=== PATIENT | female | born 1950 | race Caucasian/White ===

== ENCOUNTER → 2016-07-05 | Outpatient (CLI) | payer OTHER | LOC: FIMAGING 14:38 | DX: Z12.31 Encounter for screening mammogram for malignant neoplasm of breast (principal) | CPT/HCPCS: G0202 ==

== ENCOUNTER → 2017-09-20 | Outpatient (CLI) | payer OTHER | LOC: FIMAGING 08:00 | PROVIDERS: ATTEND Internal Medicine | DX: Z12.31 Encounter for screening mammogram for malignant neoplasm of breast (principal) ==

== ENCOUNTER 2017-10-31 07:15 | Observation (INO) | payer OTHER ==
--- NOTE | 2017-10-31 07:12 | PDHPUP ---
History & Physical Update H&P update statement: This history and physical update is based on an assessment of the patient which was completed after admission or registration (within 24 hours), but prior to the surgery/procedure. H&P update: H&P reviewed & patient examined, no change in patient's condition since H&P completed
[~2017-10-31 07:15] MED LIST: ROPIVACAINE 0.2% 80 MG, EPINEPHrine 0.2 MG, KETOROLAC TROMETHAMINE 30 MG in SYRINGE 0 ML IU ONE; TRANEXAMIC ACID 3,000 MG in NS (SYRINGE) 50 ML IRR ONE
[2017-10-31] MEDS ORDERED: TRANEXAMIC ACID 3,000 MG/50 ML BAG IRR ONE (07:53)
[2017-10-31] MEDS ORDERED: FAMOTIDINE 20 MG TAB PO ONE (09:38)
[2017-10-31] MEDS ORDERED: ceFAZolin 2 GM/DEXTROSE 100 ML IV ONE (09:38)
[2017-10-31] MEDS ORDERED: LIDOCAINE 1% 2 ML INJ ID PRN (09:38)
[2017-10-31] MEDS ORDERED: LR 1,000 ML IV ONE (09:38)
[2017-10-31] MEDS ORDERED: ACETAMINOPHEN 325 MG TAB PO ONE (09:38)
[2017-10-31] MEDS ORDERED: DEXAMETHASONE 4 MG/ML VIAL IVP ONE (09:38)
[2017-10-31] MEDS ORDERED: PROPOFOL/EMULSION 500 MG/50 ML BOTTLE IV ONE (09:47)
[2017-10-31] MEDS ORDERED: ROPIVACAINE HCL 150 MG/30 ML INJ ONE (09:47)
[2017-10-31] MEDS ORDERED: PHENYLEPHRINE HCL 100 MCG/ML SYR ONE (09:56)
[2017-10-31] MEDS ORDERED: MIDAZOLAM 2 MG/2 ML VIAL ONE (10:55)
[2017-10-31] MEDS ORDERED: MIDAZOLAM 2 MG/2 ML VIAL IVP ONE (10:57)
--- NOTE | 2017-10-31 10:58 | PDANEPAE ---
ANE History of Present Illness Patient presents for L TKA ANE Past Medical History - Cardiovascular History Hx Hypertension: No Hx Arrhythmias: No Hx Chest Pain: No Hx Coronary Artery / Peripheral Vascular Disease: No Hx CHF / Valvular Disease: No Hx Palpitations: No - Pulmonary History Hx COPD: No Hx Asthma/Reactive Airway Disease: No Hx Recent Upper Respiratory Infection: No Hx Oxygen in Use at Home: No Hx Sleep Apnea: No Sleep Apnea Screening Result - Last Documented: Negative - Neurologic History Hx Cerebrovascular Accident: No Hx Seizures: No Hx Dementia: No - Endocrine History Hx Diabetes: No - Renal History Hx Renal Disorders: No - Liver History Hx Hepatic Disorders: No - Neurological & Psychiatric Hx Hx Neurological and Psychiatric Disorders: No - Cancer History Hx Cancer: No - Congenital Disorder History Hx Congenital Disorders: No - GI History Hx Gastrointestinal Disorders: Yes Gastrointestinal History Comment: hiatial hernia. reflux - Other Health History Other Health History: wears glasses. has had c/o extremity cramping recently and is being seen by PCP - no cause determined - Chronic Pain History Chronic Pain: No - Surgical History Prior Surgeries: right medial collataral repair & scope. L knee scope multiple hand surgeries. couple surgeries on feet ANE Review of Systems Review of Systems: - Exercise capacity METS (RN): 5 METS ANE Patient History - Allergies Allergies/Adverse Reactions: No Known Allergies Allergy (Verified 10/16/17 16:30) - Home Medications Home medications: home medication list seen and reviewed Home Medications: Acyclovir [Zovirax 400 mg (*)] 800 mg PO DAILY PRN 10/16/17 [Last Taken 23:30] Cetirizine [ZyrTEC 10 mg (*)] 10 mg PO DAILY PRN 10/16/17 [Last Taken 10/29/17] Cholecalciferol Vit D3 [Vitamin D3 (*)] 2,000 units PO DAILY 10/16/17 [Last Taken 10/14/17] Herbals/Supplements -Info Only 1 ea PO DAILY 10/16/17 [Last Taken 10/14/17] Multivitamins [Multivitamin (*)] 1 each PO DAILY 10/16/17 [Last Taken 10/14/17] Triamcinolone Acetonide [Nasacort] 1 spray NS EVERY OTHER DAY PRN 10/16/17 [ Last Taken 10/29/17] Zolpidem Tartrate [Ambien 5MG (*)] 5 mg PO HS PRN 10/16/17 [Last Taken 10/28/17] celeCOXIB [Celebrex (*)] 200 mg PO DAILY PRN 10/16/17 [Last Taken 10/30/17 23:55 ] Famotidine 10/23/17 [Last Taken 10/31/17 06:00] - NPO status NPO Status: no food or drink >8 hours NPO Since - Liquids (Date): 10/31/17 NPO Since - Liquids (Time): 08:00 NPO Since - Solids (Date): 10/30/17 NPO Since - Solids (Time): 23:55 - Anes Hx Anes Hx: no prior problems - Smoking Hx Smoking Status: Never smoked - Family Anes Hx Family Hx Anesthesia Complications: none ANE Labs/Vital Signs - Vital Signs Blood Pressure: 149/88 Heart Rate: 48 Respiratory Rate: 16 O2 Sat (%): 100 Height: 162.56 cm Weight: 52.617 kg ANE Physical Exam - Airway Neck exam: FROM Mouth exam: normal dental/mouth exam - Pulmonary Pulmonary: no respiratory distress - Cardiovascular Cardiovascular: regular rate and rhythym - ASA Status ASA Status: II ANE Anesthesia Plan Anesthesia Plan: spinal Regional Anesthesia: single shot NB (SAB vs GA. RBA discussed)
[2017-10-31] MEDS ORDERED: BUPIVACAINE/DEXTROSE 7.5MG/ML 2 ML SPINAL AMP SP ONE (11:00)
[2017-10-31] MEDS ORDERED: fentaNYL 100 MCG/2 ML INJ ONE ×2 (11:50→12:54)
[2017-10-31] MEDS ORDERED: NALOXONE HCL 0.4 MG/ML INJ IVP PRN (11:57)
[2017-10-31] MEDS ORDERED: LR 500 ML IV PRN (11:57)
[2017-10-31] MEDS ORDERED: HYDROmorphONE/DILAUDID 1 MG/ML INJ IVP PRN (11:57)
[2017-10-31] MEDS ORDERED: HYDROCODONE/APAP 5/325 TAB PO PRN (11:57)
[2017-10-31] MEDS ORDERED: oxyCODONE IR 5 MG TAB PO PRN ×2 (11:57→12:30)
[2017-10-31] MEDS ORDERED: fentaNYL 100 MCG/2 ML INJ IVP PRN (11:57)
[2017-10-31] MEDS ORDERED: ONDANSETRON 4 MG/2 ML VIAL IVP PRN ×2 (11:57→12:30)
--- NOTE | 2017-10-31 12:29 | POSTOPPROG ---
Post Op Note Date of Operation: 10/31/17 Surgeon: Gerber Yin Vat Skimmer: ceasar yin PA-C Anesthesiologist: dr. elam Anesthesia: Spinal, Other (Specify) (adductor canal block) Pre-op Diagnosis: left knee OA Post-op Diagnosis: same Indication: left knee pain Procedure: L TKA robot assisted Findings: severe knee OA Inf/Abcess present in the surg proc area at time of surgery?: No EBL: 50-100
[2017-10-31] MEDS ORDERED: METOCLOPRAMIDE 10 MG/2 ML VIAL IVP PRN (12:30)
[2017-10-31] MEDS ORDERED: TEMAZEPAM 15 MG CAP PO PRN (12:30)
[2017-10-31] MEDS ORDERED: PROMETHAZINE HCL 25 MG SUPPR PR PRN (12:30)
[2017-10-31] MEDS ORDERED: PROMETHAZINE HCL 25 MG/ML INJ IVP PRN (12:30)
[2017-10-31] MEDS ORDERED: ONDANSETRON DISINTEGRATING 4 MG TAB PO PRN (12:30)
[2017-10-31] MEDS ORDERED: BISACODYL 10 MG SUPP PR PRN (12:30)
[2017-10-31] MEDS ORDERED: diphenhydrAMINE 25 MG CAP PO PRN (12:30)
[2017-10-31] MEDS ORDERED: POLYETHYLENE GLYCOL 3350 17 GM PKT PO PRN (12:30)
[2017-10-31] MEDS ORDERED: LACTULOSE 20 GM/30 ML UDCUP PO PRN (12:30)
[2017-10-31] MEDS ORDERED: DIPHENOXYLATE/ATROPINE LOMOTIL 1 TAB PO PRN (12:30)
[2017-10-31] MEDS ORDERED: LR 1,000 ML IV SCH (12:30)
[2017-10-31] MEDS ORDERED: MAGNESIUM HYDROXIDE 30 ML UDCUP PO PRN (12:30)
[2017-10-31] MEDS ORDERED: ACYCLOVIR 400 MG TAB PO PRN (12:31)
--- NOTE | 2017-10-31 12:39 | POSTANESTH ---
Post Anesthetic Evaluation Cardiovascular Status: Similar to Pre-Op Cond Respiratory Status: Similar to Pre-op Cond. Level of Consciousness/Mental Status: Alert and Oriented Pain Control: Adequate, Prn Tx Ordered Nausea/Vomiting Control: Adequate, Prn Tx Ordered Complications Possibly Related to Anesthesia: None Noted
[2017-10-31] MEDS: CYCLOBENZAPRINE 10 MG TAB PO PRN (17:42)
[2017-10-31] MEDS: ceFAZolin 2 GM/DEXTROSE 100 ML IV SCH (17:43)
[2017-10-31] MEDS ORDERED: WARFARIN SODIUM 5 MG TAB PO SCH (17:45)
[2017-10-31] MEDS ORDERED: ACETAMINOPHEN 325 MG TAB PO SCH (18:00)
[2017-10-31] MEDS: HYDROCODONE/APAP 10/325 TAB PO PRN (20:19)
[2017-10-31] MEDS: SENNOSIDES/DOCUSATE SODIUM TAB PO SCH (20:20)
[2017-10-31] MEDS: FAMOTIDINE 20 MG TAB PO SCH (20:20)
[2017-10-31] MEDS ORDERED: ASPIRIN 81 MG CHEWABLE TAB PO SCH (21:00)
[2017-10-31] MEDS ORDERED: ZOLPIDEM TARTRATE 5 MG TAB PO PRN (22:05)
[2017-11-01] MEDS: ceFAZolin 2 GM/DEXTROSE 100 ML IV SCH (01:58)
[2017-11-01 05:07] LABS: INR 1.15 (0.83-1.16); PROTIME(PATIENT) 14.9 SEC (12.0-15.0)
[2017-11-01] MEDS: CYCLOBENZAPRINE 10 MG TAB PO PRN (06:31)
[2017-11-01] MEDS: SENNOSIDES/DOCUSATE SODIUM TAB PO SCH (07:14)
[2017-11-01] MEDS: FAMOTIDINE 20 MG TAB PO SCH (07:15)
[2017-11-01 07:26] VITALS: BP 147/88
[2017-11-01] MEDS ORDERED: ENOXAPARIN 40 MG/0.4 ML SYR SC SCH (09:00)
[2017-11-01] MEDS: HYDROCODONE/APAP 10/325 TAB PO PRN (10:12)
--- NOTE | 2017-11-01 10:40 | ASMTLACE ---
DIANNA Length of stay for Answers: 2 days current admission Acuity / Level of Answers: No Care: Did the patient have an inpatient admission? # of Emergency department Answers: 0 visits in the last 6 months Score: 2 Date Signed: 11/01/2017 10:39 AM Electronically Signed By:KAZ Dumont
--- NOTE | 2017-11-01 16:01 | GDS ---
ADMISSION DIAGNOSIS: Left knee osteoarthritis. DISCHARGE DIAGNOSIS: Left knee osteoarthritis. PROCEDURE: Left total knee arthroplasty. Robotic assisted. VTE PROPHYLAXIS: Recommend Coumadin and Lovenox due to history of DVT and factor 5 Leiden. BRIEF DESCRIPTION OF HOSPITAL STAY: Patient was admitted for an elective joint arthroplasty. The pa chauncey tolerated the procedure well and has passed physical therapy. The patient was given appropriat e antibiotic prophylaxis and venous thromboembolism prophylaxis. The patient's pain was well control led on oral pain medication, patient was holding down food, and had urinated. Decision was made to d ischarge the patient. The patient was given post-operative prescriptions pre-operatively. PLAN: Follow up as scheduled in Dr. Waller's office on 11/19 at 9 a.m. /[id number]/MODL
--- NOTE | 2017-11-01 20:23 | SOAPPROG ---
SOAP Progress Note Assessment/Plan: Assessment: Patient is doing well s/p TKA pain is well controlled VTE ppx: recommend coumadin and lovenox due to history of DVT and factor V leiden Anemia: level expected initially postop D/c planning: d/c to home today Plan: 11/01/17 20:21 Subjective: patient is doing well, mild pain, denies SOB, chest pain and N/V. Objective: Vital Signs Temp Pulse Resp BP Pulse Ox 36.6 C 47 L 16 147/88 H 96 11/01/17 07:25 11/01/17 07:25 11/01/17 07:25 11/01/17 07:25 11/01/17 07:25 Laboratory Results 11/01/17 04:13 10/31/17 11/01/17 11/02/17 05:59 05:59 05:59 Intake Total 3075 Output Total 2650 Balance 425 PT 14.9 SEC (12.0-15.0) 11/01/17 04:13 INR 1.15 (0.83-1.16) 11/01/17 04:13 incision dressing is clean and dry, NVI, +pf/df ICD10 Worksheet Patient Problems: Problems Problem Status Onset Primary localized osteoarthritis of left knee Acute
--- NOTE | 2017-11-02 19:24 | GOP ---
DATE OF OPERATION: 10/31/2017 SURGEON: Lucas Waller MD TRICOT KNITTER: Paz Waller, LIA. ANESTHESIA: Spinal. PREOPERATIVE DIAGNOSIS: Left knee osteoarthritis. POSTOPERATIVE DIAGNOSIS: Left knee osteoarthritis. PROCEDURE PERFORMED: 1. Left total knee arthroplasty with computer navigation, robotic assist. 2. Left total knee replacement with computer navigation, robotic assist. FINDINGS: Severe medial patellofemoral osteoarthritis. ESTIMATED BLOOD LOSS: 30 cc. INDICATIONS: The patient is a 67-year-old female with severe and progressive pain and deformity of t he left knee unresponsive to conservative care. The risks and benefits of surgical intervention were explained in detail. DESCRIPTION OF PROCEDURE: The patient was brought to the operative room and placed on the table in t he supine position. Spinal anesthesia was induced without difficulty. A pneumatic tourniquet was appl ied about the left proximal thigh, and the leg was prepped and draped in a sterile fashion. The leg h older was applied. After exsanguination by elevation the tourniquet was inflated to 250 mmHg. Incision was made anterior medial from the tibial tuberosity to a point cm proximal to th e superior pole of the patella. Medial parapatellar arthrotomy was carried out from the superior pole of the patella and posteriorly in line with the fibers of the Type II VMO. The medial collateral lig ament was elevated and the infrapatellar fat pad was resected. The patella was everted and the articular surface was excised. A 32 mm patellar button was placed. Attention was turned first to the distal aspect of the femur. After exposure of the femur, 2 half pin s were placed for fixation of the femoral array. In a similar fashion, 2 pins were placed anteromedia l on the tibia for fixation of the tibial array. External land marking and registration of the hip ce nter was performed without difficulty. Internal femoral and tibial registration was carried out witho ut difficulty and the femoral and tibial checkpoints were placed and verified for accuracy. Attention was turned to the femur. The foot print for the size 3 femoral component was cut with the s aw using the [employer] robotic system and verified for accuracy against the CT based plan. In a similar fas hion, the saw was used to cut the footprint for the size 3 tibial component using the [employer] system and verified for accuracy against the CT based plan. The tibial articular surface was excised without dif ficulty, followed by the intercondylar box cut. The knee was extended and the remnants of the medial and lateral meniscus were excised. The posterior capsule was injected with ropivacaine, epinephrine and Toradol. A size 3 tibial tray was positioned. Trial reduction was then carried out. There was excellent range of motion, alignment, and stability using the 3 x 9 mm polyethylene. All trials were then removed. The joint was thoroughly irrigated and carefully dried. The press-fit c omponents were implanted. The permanent 3 x 9 mm polyethylene was placed without difficulty. The tourniquet was deflated and all bleeders were coagulated. The wound was thoroughly irrigated and closed using interrupted sutures of 2-0 Vicryl for the joint capsule. The subcu was closed with 3-0 V icryl and the skin with 4-0 Monocryl. Dermabond and Steri-Strips were applied followed by a compressi ve dressing. The patient was then moved from the operating room to the recovery room in good conditio n, having tolerated the procedure well. /[id number]/MODL
== END 2017-11-01 11:05 | disposition home or self-care (01) ==
LOC: F3N 09:11
PROVIDERS: ADMIT Orthopaedic Surgery; ATTEND Orthopaedic Surgery
PROC: 8E0Y0CZ Robotic Assisted Procedure of Lower Extremity, Open Approach (ICD-10-PCS; principal; 2017-10-31 11:00)
PROC: 8E0YXBG Computer Assisted Procedure of Lower Extremity, With Computerized Tomography (ICD-10-PCS; principal; 2017-10-31 11:00)
PROC: 0SRD0JZ Replacement of Left Knee Joint with Synthetic Substitute, Open Approach (ICD-10-PCS; principal; 2017-10-31 11:00)
DX: M17.12 Unilateral primary osteoarthritis, left knee (principal); D62 Acute posthemorrhagic anemia; D68.2 Hereditary deficiency of other clotting factors; Z86.718 Personal history of other venous thrombosis and embolism
CPT/HCPCS: 27447; 73560; 88305; 88311; 97116; 97161; 97530; C1776; G8978; G8979; G8980; J0171; J0690; J1100; J1650; J1885; J2250; J2370; J2704; J2795; J3010

== ENCOUNTER → 2018-05-21 | Outpatient (CLI) | payer OTHER | LOC: FIMAGING 13:25 | PROVIDERS: ATTEND Orthopaedic Surgery | DX: M17.11 Unilateral primary osteoarthritis, right knee (principal); M71.21 Synovial cyst of popliteal space [Baker], right knee ==

== ENCOUNTER 2018-06-26 07:12 | Observation (INO) | payer OTHER ==
[~2018-06-26 07:12] MED LIST changes: -ROPIVACAINE 0.2% 80 MG, EPINEPHrine 0.2 MG, KETOROLAC TROMETHAMINE 30 MG in SYRINGE 0 ML IU ONE; -TRANEXAMIC ACID 3,000 MG in NS (SYRINGE) 50 ML IRR ONE; +TRANEXAMIC ACID 3,000 MG/50 ML BAG IRR ONE
[2018-06-26] MEDS ORDERED: DEXAMETHASONE 4 MG/ML VIAL IVP ONE (07:18)
[2018-06-26] MEDS ORDERED: FAMOTIDINE 20 MG TAB PO ONE (07:18)
[2018-06-26] MEDS ORDERED: ACETAMINOPHEN 325 MG TAB PO ONE (07:18)
[2018-06-26] MEDS ORDERED: LR 1,000 ML IV ONE (07:20)
[2018-06-26] MEDS: ROPIVACAINE 0.2% 80 MG, EPINEPHrine 0.2 MG, KETOROLAC TROMETHAMINE 30 MG in SYRINGE 0 ML IU ONE ×2 (07:20→08:36)
[2018-06-26] MEDS: TRANEXAMIC ACID 3,000 MG in NS (SYRINGE) 50 ML IRR ONE ×2 (07:21→08:37)
[2018-06-26] MEDS ORDERED: CEFAZOLIN 2 GM/DEXTROSE/100 ML BAG IV ONE (07:23)
[2018-06-26] MEDS ORDERED: ACETAMINOPHEN 325 MG TAB ONE (07:23)
[2018-06-26] MEDS ORDERED: MIDAZOLAM 2 MG/2 ML VIAL ONE (07:54)
[2018-06-26] MEDS ORDERED: MIDAZOLAM 2 MG/2 ML VIAL IVP ONE (07:54)
[2018-06-26] MEDS ORDERED: PROPOFOL/EMULSION 500 MG/50 ML BOTTLE IV ONE (07:57)
[2018-06-26] MEDS ORDERED: BUPIVACAINE/DEXTROSE 7.5MG/ML 2 ML SPINAL AMP SP ONE (08:02)
[2018-06-26] MEDS: ceFAZolin 2 GM/DEXTROSE 100 ML IV ONE (08:10)
[2018-06-26] MEDS ORDERED: LIDOCAINE 2% 5 ML SDV ONE (08:13)
[2018-06-26] MEDS ORDERED: ROPIVACAINE HCL 150 MG/30 ML INJ ONE (08:30)
[2018-06-26] MEDS ORDERED: ePHEDrine SULFATE 25 MG/5 ML SYR ONE (08:46)
[2018-06-26] MEDS ORDERED: VANCOMYCIN 1 GM VIAL ONE (08:52)
[2018-06-26] MEDS ORDERED: ALBUTEROL 3 ML DEYVIAL IH PRN (09:12)
[2018-06-26] MEDS ORDERED: ACETAMINOPHEN 500 MG TAB PO PRN (09:12)
[2018-06-26] MEDS ORDERED: fentaNYL 100 MCG/2 ML INJ IVP PRN (09:12)
[2018-06-26] MEDS ORDERED: HYDROCODONE/APAP 5/325 TAB PO PRN (09:12)
[2018-06-26] MEDS ORDERED: NALOXONE HCL 0.4 MG/ML INJ IVP PRN (09:12)
[2018-06-26] MEDS ORDERED: ONDANSETRON 4 MG/2 ML VIAL IVP PRN ×2 (09:12→09:38)
[2018-06-26] MEDS ORDERED: oxyCODONE IR 5 MG TAB PO PRN (09:12)
[2018-06-26] MEDS ORDERED: HYDROmorphONE/DILAUDID 1 MG/ML INJ IVP PRN (09:12)
[2018-06-26] MEDS ORDERED: LR 500 ML IV PRN (09:12)
[2018-06-26] MEDS ORDERED: TEMAZEPAM 15 MG CAP PO PRN (09:38)
[2018-06-26] MEDS ORDERED: BISACODYL 10 MG SUPP PR PRN (09:38)
[2018-06-26] MEDS ORDERED: ONDANSETRON DISINTEGRATING 4 MG TAB PO PRN (09:38)
[2018-06-26] MEDS ORDERED: METOCLOPRAMIDE 10 MG/2 ML VIAL IVP PRN (09:38)
[2018-06-26] MEDS ORDERED: POLYETHYLENE GLYCOL 3350 17 GM PKT PO PRN (09:38)
[2018-06-26] MEDS ORDERED: LACTULOSE 20 GM/30 ML UDCUP PO PRN (09:38)
[2018-06-26] MEDS ORDERED: CYCLOBENZAPRINE 10 MG TAB PO PRN (09:38)
[2018-06-26] MEDS ORDERED: MAGNESIUM HYDROXIDE 30 ML UDCUP PO PRN (09:38)
[2018-06-26] MEDS ORDERED: diphenhydrAMINE 25 MG CAP PO PRN (09:38)
[2018-06-26] MEDS ORDERED: PROMETHAZINE HCL 25 MG/ML INJ IVP PRN (09:38)
[2018-06-26] MEDS ORDERED: DIPHENOXYLATE/ATROPINE LOMOTIL 1 TAB PO PRN (09:38)
[2018-06-26] MEDS ORDERED: PROMETHAZINE HCL 25 MG SUPPR PR PRN (09:38)
[2018-06-26] MEDS ORDERED: LR 1,000 ML IV SCH (10:00)
[2018-06-26] MEDS: HYDROCODONE/APAP 5/325 TAB PO PRN ×3 (13:48→22:06)
[2018-06-26] MEDS: ACETAMINOPHEN 325 MG TAB PO SCH ×2 (15:22→21:01)
[2018-06-26] MEDS ORDERED: WARFARIN SODIUM 5 MG TAB PO SCH (16:00)
[2018-06-26] MEDS: ceFAZolin 2 GM/DEXTROSE 100 ML IV SCH ×2 (16:26→23:56)
[2018-06-26] MEDS: FAMOTIDINE 20 MG TAB PO SCH (20:17)
[2018-06-26] MEDS: SENNOSIDES/DOCUSATE SODIUM TAB PO SCH (20:17)
[2018-06-27] MEDS: ACETAMINOPHEN 325 MG TAB PO SCH ×2 (00:45→09:37)
[2018-06-27] MEDS: HYDROCODONE/APAP 5/325 TAB PO PRN ×2 (03:09→08:15)
[2018-06-27] MEDS: SENNOSIDES/DOCUSATE SODIUM TAB PO SCH (08:15)
[2018-06-27] MEDS: FAMOTIDINE 20 MG TAB PO SCH (08:15)
[2018-06-27] MEDS ORDERED: ENOXAPARIN 40 MG/0.4 ML SYR SC SCH (09:00)
== END 2018-06-27 10:06 | disposition home or self-care (01) ==
DX: M17.11 Unilateral primary osteoarthritis, right knee (principal); K21.9 Gastro-esophageal reflux disease without esophagitis
CPT/HCPCS: 27447; 73560; 88311; 97116; 97161; C1713; C1776; J0171; J0690; J1100; J1650; J1885; J2250; J2704; J2795; J3370

== ENCOUNTER → 2018-07-23 | Outpatient (CLI) | payer OTHER | LOC: BHCLAF 11:30 | PROVIDERS: ATTEND Internal Medicine Interventional Cardiology | DX: H53.9 Unspecified visual disturbance (principal) | CPT/HCPCS: 93306-PO ==